=== PATIENT | male | born 1995 | race Caucasian/White ===

== ENCOUNTER 2019-03-07 17:21 | Inpatient (IN) | payer MEDICAID, OTHER ==
[~2019-03-07] VITALS: Ht 185.4 cm; Wt 105.8 kg
[~2019-03-07 17:21] MED LIST: AMLO-511 PO; CLON0.1T PO; DIVA-78 PO; FLUO-191 PO; RISP4 PO; TOPI25 PO
[2019-03-07] MEDS ORDERED: LORA1TAB3 PO (20:18)
[2019-03-07] MEDS ORDERED: TRAZ-220 PO (20:18)
[2019-03-07] MEDS ORDERED: QUET200T PO (20:18)
[2019-03-07] MEDS ORDERED: HALO5TAB2 PO (20:18)
[2019-03-07 20:29] LABS: BASOPHILS % (AUTO) 0.6 % (0.0-2.0); EOSINOPHILS % (AUTO) 0.6 % (1.0-6.0); HEMATOCRIT 46.6 % (41-53); HEMOGLOBIN 16.3 g/dL (13.5-17.5); LYMPHOCYTES # (AUTO) 2.4 K/uL (1.0-4.8); LYMPHOCYTES % (AUTO) 23.6 % (22.0-44.0); MEAN CORPUSCULAR VOLUME 92 fL (80-100); MONOCYTES # (AUTO) 1.1 K/uL (0.1-1.0); MONOCYTES % (AUTO) 10.4 % (2.0-9.0); NEUTROPHILS # (AUTO) 6.6 K/uL (1.8-7.7); NEUTROPHILS % (AUTO) 64.8 % (40.0-70.0); PLATELET COUNT (AUTO) 224 K/uL (150-450); RED BLOOD CELL COUNT(AUTO) 5.09 MIL/uL (4.50-5.90); RED CELL DISTRIBUTION WIDTH 12.6 % (11.5-14.5)
[2019-03-07 20:42] LABS: ANION GAP 8 mmol/L (8-16); CALCIUM, TOTAL 9.2 mg/dL (8.8-10.5); CARBON DIOXIDE 31 mmol/L (22-29); CHLORIDE 101 mmol/L (98-107); CREATININE 0.99 mg/dL (0.60-1.30); GLOMERULAR FILTR. RATE CALC > 60 mL/min (>60); GLUCOSE,RANDOM 104 mg/dL (70-110); SODIUM SERUM 140 mmol/L (136-145); UREA NITROGEN, BLOOD 18 mg/dL (7-18)
[2019-03-07 20:48] LABS: ALANINE AMINOTRANSFERASE 36 U/L (12-78); ALKALINE PHOSPHATASE 63 U/L (46-116); ASPARTATE AMINOTRANSFERASE 36 U/L (15-37); BILIRUBIN,TOTAL 0.5 mg/dL (0.1-1.0); TOTAL PROTEIN, SERUM 7.8 g/dL (6.4-8.2)
[2019-03-07 21:24] LABS: AMPHET/METH SCREEN,URINE NEGATIVE (NEGATIVE); BARBITURATE SCREEN, URINE NEGATIVE (NEGATIVE); BENZODIAZEPINES SCREEN,URINE NEGATIVE (NEGATIVE); CANNABINOID SCREEN,URINE NEGATIVE (NEGATIVE); COCAINE SCREEN,URINE NEGATIVE (NEGATIVE); METHADONE SCREEN, URINE NEGATIVE (NEGATIVE); OPIATE SCREEN,URINE NEGATIVE (NEGATIVE)
[2019-03-07 21:25] LABS: PHENCYCLIDINE SCREEN,URINE NEGATIVE (NEGATIVE)
[2019-03-07 21:30] LABS: APPEARANCE,URINE CLEAR (CLEAR); BILIRUBIN,URINE NEGATIVE (NEGATIVE); GLUCOSE, URINE (UA) NEGATIVE (NEGATIVE); KETONES,URINE NEGATIVE (NEGATIVE); LEUKOCYTE ESTERASE ,URINE NEGATIVE (NEGATIVE); NITRATE,URINE NEGATIVE (NEGATIVE); OCCULT BLOOD,URINE NEGATIVE (NEGATIVE); PROTEIN,URINE NEGATIVE (NEGATIVE)
[2019-03-08] MEDS ORDERED: ZOLPIDEM TARTRATE 10 MG TABLET PO PRN (01:45)
[2019-03-08 05:56] VITALS: BP 138/78
[2019-03-08] MEDS ORDERED: ONDANSETRON HCL 4 MG TABLET PO PRN (07:00)
[2019-03-08] MEDS ORDERED: CloNIDine HCL 0.1 MG TABLET PO PRN (07:00)
[2019-03-08] MEDS ORDERED: DOCUSATE SODIUM 100 MG CAPSULE PO PRN (07:00)
[2019-03-08] MEDS ORDERED: GuaiFENesin/D-METHORPHAN [SUGAR-FREE] 200-20MG/10 ML SYRUP UDCUP PO PRN (07:00)
[2019-03-08] MEDS ORDERED: ACETAMINOPHEN 325 MG TABLET PO PRN (07:00)
[2019-03-08] MEDS ORDERED: PETROLATUM,WHITE 28 GM JELLY TP PRN (07:00)
[2019-03-08] MEDS ORDERED: MAGNESIUM HYDROXIDE SUSPENSION 30 ML UDCUP PO PRN (07:00)
[2019-03-08] MEDS ORDERED: MAG HYDROX/AL HYDROX/SIMETH ES 30 ML SUSPENSION UDCUP PO PRN (07:00)
[2019-03-08] MEDS ORDERED: LOPERAMIDE HCL 2 MG CAPSULE PO PRN (07:00)
[2019-03-08 08:37] VITALS: BP 134/85
[2019-03-08 09:59] VITALS: BP 136/85
[2019-03-08] MEDS: IBUPROFEN 400 MG TABLET PO PRN (09:59)
[2019-03-08] MEDS: LORazepam 2 MG TABLET PO PRN (16:17)
[2019-03-08] MEDS: HALOPERIDOL 5 MG TABLET PO PRN (16:17)
[2019-03-08 17:15] VITALS: BP 123/85
[2019-03-09 06:25] VITALS: BP 126/81
[2019-03-09 08:26] LABS: CHOL/HDL RATIO 5.3 (4.2-7.3)
[2019-03-09 08:37] VITALS: BP 133/87
[2019-03-09] MEDS: BENZTROPINE MESYLATE 1 MG TABLET PO SCH (08:39)
[2019-03-09] MEDS: DIVALPROEX SODIUM 500 MG DR TABLET PO SCH ×2 (08:39→16:39)
[2019-03-09] MEDS: RisperiDONE 4 MG TABLET PO SCH ×2 (08:39→16:39)
[2019-03-09 16:22] VITALS: BP 137/85
[2019-03-09] MEDS: LORazepam 2 MG TABLET PO PRN ×2 (16:39→20:39)
[2019-03-09] MEDS: HALOPERIDOL 5 MG TABLET PO PRN (16:39)
[2019-03-09] MEDS: IBUPROFEN 400 MG TABLET PO PRN (20:38)
[2019-03-10 06:14] VITALS: BP 129/83
[2019-03-10] MEDS: DIVALPROEX SODIUM 500 MG DR TABLET PO SCH (08:27)
[2019-03-10] MEDS: BENZTROPINE MESYLATE 1 MG TABLET PO SCH (08:27)
[2019-03-10] MEDS: RisperiDONE 4 MG TABLET PO SCH (08:27)
[2019-03-10] MEDS ORDERED: BENZ1TAB10 PO (08:44)
[2019-03-10 08:47] VITALS: BP 138/85
== END 2019-03-10 12:55 | disposition home or self-care (01) | DRG 750 ==
LOC: EMS 17:21 → B3A 03-08 03:22
PROVIDERS: ADMIT Psychiatry & Neurology Child & Adolescent Psychiatry; ATTEND Psychiatry & Neurology Psychiatry
DX: F25.9 Schizoaffective disorder, unspecified (principal); R45.850 Homicidal ideations; F84.0 Autistic disorder; F90.9 Attention-deficit hyperactivity disorder, unspecified type; I10 Essential (primary) hypertension; K59.00 Constipation, unspecified
CPT/HCPCS: G0480

== ENCOUNTER 2020-12-31 05:51 | Emergency (ER) | payer MEDICAID, OTHER ==
[~2020-12-31] VITALS: Ht 182.9 cm; Wt 116.8 kg
[~2020-12-31 05:51] MED LIST changes: -AMLO-511 PO; +BENZ1TAB10 PO; -CLON0.1T PO; +DIVA-112 PO; -DIVA-78 PO; -FLUO-191 PO; -RISP4 PO; +RISP4TAB73 PO; -TOPI25 PO
[2020-12-31] MEDS ORDERED: FLUO-191 PO (06:03)
[2020-12-31] MEDS ORDERED: TRAZ-257 PO (06:03)
[2020-12-31] MEDS ORDERED: DIVA-112 PO (06:03)
[2020-12-31] MEDS ORDERED: DOCU-275 PO (06:03)
[2020-12-31] MEDS ORDERED: HALO10 PO (06:03)
[2020-12-31] MEDS ORDERED: QUET200T PO (06:03)
[2020-12-31] MEDS ORDERED: FLUT200B IH (06:03)
[2020-12-31] MEDS ORDERED: AMLO-257 PO (06:03)
[2020-12-31] MEDS ORDERED: IBUPROFEN 600 MG TABLET PO ONE (06:30)
[2020-12-31] MEDS ORDERED: ACETAMINOPHEN 500 MG TABLET PO ONE (06:45)
[2020-12-31 06:56] LABS: COVID AG,FIA SOURCE NASAL SWAB
[2020-12-31 07:15] VITALS: BP 147/89
== END 2020-12-31 07:28 | disposition home or self-care (01) ==
LOC: EMS 05:52
DX: S83.92XA Sprain of unspecified site of left knee, initial encounter (principal); Z20.822 Contact with and (suspected) exposure to COVID-19; X58.XXXA Exposure to other specified factors, initial encounter; Y93.89 Activity, other specified; Y92.89 Other specified places as the place of occurrence of the external cause; Y99.8 Other external cause status
CPT/HCPCS: 29505; 29530; 87426; 99284; 73562-TC; Z7502; Z7610

== ENCOUNTER 2021-06-09 11:17 | Emergency (ER) | payer OTHER ==
[~2021-06-09] VITALS: Ht 185.4 cm; Wt 81.8 kg
[~2021-06-09 11:17] MED LIST changes: +AMLO-257 PO; +DOCU-270 PO; +FLUO-191 PO; +FLUT200B IH; +HALO10 PO; +QUET200T PO; +TRAZ-257 PO
[2021-06-09 11:23] VITALS: BP 148/74
[2021-06-09 14:08] LABS: COVID AG,FIA SOURCE NASOPHARYNGEAL
[2021-06-09 14:13] LABS: BASOPHILS % (AUTO) 0.7 % (0.0-2.0); EOSINOPHILS % (AUTO) 0 % (1.0-6.0); HEMATOCRIT 43.8 % (41-53); HEMOGLOBIN 15.1 g/dL (13.5-17.5); LYMPHOCYTES # (AUTO) 1.1 K/uL (1.0-4.8); LYMPHOCYTES % (AUTO) 9.4 % (22.0-44.0); MEAN CORPUSCULAR HGB CONC 34.6 G/dL (31.0-37.0); MEAN CORPUSCULAR VOLUME 90 fL (80-100); MONOCYTES # (AUTO) 1.5 K/uL (0.1-1.0); MONOCYTES % (AUTO) 12.2 % (2.0-9.0); NEUTROPHILS # (AUTO) 9.3 K/uL (1.8-7.7); NEUTROPHILS % (AUTO) 77.7 % (40.0-70.0); PLATELET COUNT (AUTO) 155 K/uL (150-450); RED BLOOD CELL COUNT(AUTO) 4.88 MIL/uL (4.50-5.90); RED CELL DISTRIBUTION WIDTH 13.3 % (11.5-14.5)
[2021-06-09 14:27] LABS: ANION GAP 13 mmol/L (8-16); CALCIUM, TOTAL 8.3 mg/dL (8.8-10.5); CARBON DIOXIDE 25 mmol/L (22-29); CHLORIDE 97 mmol/L (98-107); CREATININE 1.17 mg/dL (0.60-1.30); GLOMERULAR FILTR. RATE CALC > 60 mL/min (>60); GLUCOSE,RANDOM 140 mg/dL (70-110); POTASSIUM 3.5 mmol/L (3.5-5.1); SODIUM SERUM 135 mmol/L (136-145); UREA NITROGEN, BLOOD 17 mg/dL (7-18)
[2021-06-09 14:30] LABS: ALANINE AMINOTRANSFERASE 35 U/L (12-78); ALBUMIN 3.5 g/dL (3.4-5.0); ALKALINE PHOSPHATASE 51 U/L (46-116); ASPARTATE AMINOTRANSFERASE 50 U/L (15-37); BILIRUBIN,TOTAL 0.8 mg/dL (0.1-1.0); TOTAL PROTEIN, SERUM 7.4 g/dL (6.4-8.2)
== END 2021-06-09 15:37 | disposition home or self-care (01) ==
LOC: EMS 11:20
DX: R19.7 Diarrhea, unspecified (principal); R50.9 Fever, unspecified; I10 Essential (primary) hypertension; F32.9 Major depressive disorder, single episode, unspecified; F20.9 Schizophrenia, unspecified; Z88.0 Allergy status to penicillin; Z79.899 Other long term (current) drug therapy; Z20.822 Contact with and (suspected) exposure to COVID-19
CPT/HCPCS: 80053; 83690; 85025; 99283

== ENCOUNTER 2022-03-29 09:07 | Emergency (ER) | payer OTHER ==
[~2022-03-29] VITALS: Ht 177.8 cm; Wt 95.5 kg
[~2022-03-29 09:07] MED LIST changes: -BENZ1TAB10 PO; +BENZ1TAB96 PO; -DOCU-270 PO; +DOCU-385 PO; +FLUO-177 PO; -FLUO-191 PO; -HALO10 PO; +HALO10TA21 PO
[2022-03-29] MEDS ORDERED: CLOT15CR29 TP (09:20)
[2022-03-29] MEDS ORDERED: NAPR-1193 PO (09:20)
[2022-03-29] MEDS ORDERED: LORA-1000 PO (09:20)
[2022-03-29 11:51] VITALS: BP 143/98
== END 2022-03-29 14:27 | disposition home or self-care (01) ==
LOC: EMS 09:10
DX: M25.572 Pain in left ankle and joints of left foot (principal); F32.A Depression, unspecified; I10 Essential (primary) hypertension; F20.9 Schizophrenia, unspecified; F84.0 Autistic disorder; F90.9 Attention-deficit hyperactivity disorder, unspecified type; Z88.0 Allergy status to penicillin
CPT/HCPCS: 99283

== ENCOUNTER 2022-08-19 07:28 | Emergency (ER) | payer OTHER ==
[~2022-08-19] VITALS: Ht 185.4 cm; Wt 111.8 kg
[~2022-08-19 07:28] MED LIST changes: +CLOT15CR29 TP; +LORA-1000 PO; +NAPR-1193 PO
[2022-08-19] MEDS ORDERED: TRAZ150T80 PO (07:36)
[2022-08-19] MEDS ORDERED: MELA3CAP2 PO (07:36)
[2022-08-19] MEDS ORDERED: ACETAMINOPHEN 500 MG TABLET PO ONE (08:00)
[2022-08-19] MEDS ORDERED: IBUPROFEN 600 MG TABLET PO ONE (08:00)
[2022-08-19 08:58] VITALS: BP 133/80
== END 2022-08-19 10:33 | disposition home or self-care (01) ==
LOC: EMS 07:28
DX: S83.92XA Sprain of unspecified site of left knee, initial encounter (principal); F32.A Depression, unspecified; I10 Essential (primary) hypertension; F20.9 Schizophrenia, unspecified; F90.9 Attention-deficit hyperactivity disorder, unspecified type; Z88.0 Allergy status to penicillin; X58.XXXA Exposure to other specified factors, initial encounter; Y93.89 Activity, other specified; Y92.89 Other specified places as the place of occurrence of the external cause; Y99.8 Other external cause status
CPT/HCPCS: 99283

== ENCOUNTER 2023-03-28 14:14 | Inpatient (IN) | payer MEDICAID, OTHER ==
[~2023-03-28] VITALS: Ht 185.4 cm; Wt 111.8 kg
[~2023-03-28 14:14] MED LIST changes: -BENZ1TAB96 PO; +MELA3CAP2 PO; -TRAZ-257 PO; +TRAZ150T80 PO
[2023-03-28] MEDS ORDERED: DIVA-112 PO (15:28)
[2023-03-28] MEDS ORDERED: CLON0.1T2 PO (15:28)
[2023-03-28 16:05] LABS: COVID AG,FIA SOURCE NASAL SWAB
[2023-03-28 16:19] LABS: BASOPHILS % (AUTO) 0.7 % (0.0-2.0); EOSINOPHILS % (AUTO) 0.8 % (1.0-6.0); HEMATOCRIT 44.6 % (41-53); HEMOGLOBIN 15.5 g/dL (13.5-17.5); LYMPHOCYTES # (AUTO) 2.7 K/uL (1.0-4.8); LYMPHOCYTES % (AUTO) 26.6 % (22.0-44.0); MEAN CORPUSCULAR HEMOGLOBIN 29.7 pg (26.0-34.0); MEAN CORPUSCULAR HGB CONC 34.8 G/dL (31.0-37.0); MEAN CORPUSCULAR VOLUME 85 fL (80-100); MONOCYTES # (AUTO) 1.1 K/uL (0.1-1.0); MONOCYTES % (AUTO) 10.9 % (2.0-9.0); NEUTROPHILS # (AUTO) 6.3 K/uL (1.8-7.7); PLATELET COUNT (AUTO) 231 K/uL (150-450); RED BLOOD CELL COUNT(AUTO) 5.22 MIL/uL (4.50-5.90)
[2023-03-28 16:26] LABS: ANION GAP 9 mmol/L (8-16); CALCIUM, TOTAL 9.3 mg/dL (8.8-10.5); CARBON DIOXIDE 27 mmol/L (22-29); CHLORIDE 101 mmol/L (98-107); CREATININE 1.01 mg/dL (0.60-1.30); GLOMERULAR FILTR. RATE CALC > 60 mL/min (>60); GLUCOSE,RANDOM 114 mg/dL (70-110); SODIUM SERUM 137 mmol/L (136-145)
[2023-03-28] MEDS ORDERED: LORazepam 1 MG TABLET PO ONE (16:30)
[2023-03-28 16:33] LABS: ALANINE AMINOTRANSFERASE 63 U/L (12-78); ALBUMIN 3.9 g/dL (3.4-5.0); ALKALINE PHOSPHATASE 71 U/L (46-116); ASPARTATE AMINOTRANSFERASE 45 U/L (15-37); BILIRUBIN,TOTAL 0.4 mg/dL (0.1-1.0); TOTAL PROTEIN, SERUM 7.7 g/dL (6.4-8.2)
[2023-03-28] MEDS ORDERED: LORazepam 2 MG TABLET PO PRN (19:00)
[2023-03-28] MEDS ORDERED: HALOPERIDOL 5 MG TABLET PO PRN (19:00)
[2023-03-28 21:40] VITALS: BP 143/105; PULSE 106; RESP 20; TEMP 98.6; O2SAT 95
[2023-03-28] MEDS: ZOLPIDEM TARTRATE 10 MG TABLET PO PRN (22:16)
[2023-03-29] MEDS ORDERED: PNEUMOCOCCAL VACCINE POLYVALENT 0.5 ML VIAL [PPSV23] IM. ONE (02:00)
[2023-03-29] MEDS ORDERED: CloNIDine HCL 0.1 MG TABLET PO PRN (05:30)
[2023-03-29] MEDS ORDERED: OMEPRAZOLE 20 MG CAPSULE PO PRN (05:30)
[2023-03-29] MEDS ORDERED: LOPERAMIDE HCL 2 MG CAPSULE PO PRN (05:30)
[2023-03-29] MEDS ORDERED: ONDANSETRON HCL 4 MG TABLET PO PRN (05:30)
[2023-03-29] MEDS ORDERED: ALBUTEROL SULFATE HFA 90 MCG/PUFF 8 GM INHALER IH PRN (05:30)
[2023-03-29] MEDS ORDERED: MAG HYDROX/AL HYDROX/SIMETH ES 30 ML SUSPENSION UDCUP PO PRN (05:30)
[2023-03-29] MEDS ORDERED: BENZOCAINE/MENTHOL LOZENGE PO PRN (05:30)
[2023-03-29] MEDS ORDERED: IBUPROFEN 600 MG TABLET PO PRN (05:30)
[2023-03-29] MEDS ORDERED: BACITRACIN 28 GM OINTMENT TP PRN (05:30)
[2023-03-29] MEDS ORDERED: PETROLATUM,WHITE 28 GM JELLY TP PRN (05:30)
[2023-03-29] MEDS ORDERED: MAGNESIUM HYDROXIDE SUSPENSION 30 ML UDCUP PO PRN (05:30)
[2023-03-29] MEDS ORDERED: DOCUSATE SODIUM 100 MG CAPSULE PO PRN (05:30)
[2023-03-29 08:24] VITALS: BP 17/98; PULSE 72; RESP 17; TEMP 98.4; O2SAT 98
[2023-03-29] MEDS: AmLODIPine BESYLATE 5 MG TABLET PO SCH (09:00)
[2023-03-29 20:11] VITALS: BP 130/88; PULSE 97; RESP 20; TEMP 98.3; O2SAT 95
[2023-03-29] MEDS: ZOLPIDEM TARTRATE 10 MG TABLET PO PRN (22:00)
[2023-03-30 08:22] VITALS: BP 133/79; PULSE 97; RESP 17; TEMP 98.3; O2SAT 94
[2023-03-30] MEDS: DIVALPROEX SODIUM 500 MG DR TABLET PO SCH ×2 (09:05→17:15)
[2023-03-30] MEDS: AmLODIPine BESYLATE 5 MG TABLET PO SCH (09:05)
[2023-03-30] MEDS: RisperiDONE 4 MG TABLET PO SCH ×2 (09:05→17:15)
[2023-03-30 20:26] VITALS: BP 126/99; PULSE 100; RESP 19; TEMP 97.3; O2SAT 95
[2023-03-30] MEDS: ACETAMINOPHEN 325 MG TABLET PO PRN (20:43)
[2023-03-31 08:26] VITALS: BP 143/85; PULSE 100; RESP 18; TEMP 97.5; O2SAT 98
[2023-03-31] MEDS: DIVALPROEX SODIUM 500 MG DR TABLET PO SCH ×2 (08:30→16:31)
[2023-03-31] MEDS: RisperiDONE 4 MG TABLET PO SCH ×2 (08:30→16:31)
[2023-03-31] MEDS: AmLODIPine BESYLATE 5 MG TABLET PO SCH (08:30)
[2023-03-31] MEDS: ACETAMINOPHEN 325 MG TABLET PO PRN (18:18)
[2023-03-31 18:19] VITALS: RESP 18
[2023-03-31 19:18] VITALS: RESP 18
[2023-03-31 20:16] VITALS: BP 130/86; PULSE 100; RESP 18; TEMP 97.6; O2SAT 96
[2023-03-31 22:22] VITALS: BP 146/89; PULSE 100; RESP 18; O2SAT 98
[2023-04-01 08:20] VITALS: BP 133/79; PULSE 99; RESP 19; TEMP 98.9
[2023-04-01] MEDS: AmLODIPine BESYLATE 5 MG TABLET PO SCH (08:37)
[2023-04-01] MEDS: RisperiDONE 4 MG TABLET PO SCH (08:37)
[2023-04-01] MEDS: DIVALPROEX SODIUM 500 MG DR TABLET PO SCH (08:37)
== END 2023-04-01 13:47 | disposition home or self-care (01) | DRG 750 ==
LOC: EMS 14:19 → B2S 19:00
PROVIDERS: ADMIT Psychiatry & Neurology Psychiatry; ATTEND Psychiatry & Neurology Psychiatry
DX: F25.9 Schizoaffective disorder, unspecified (principal); R45.851 Suicidal ideations; F41.9 Anxiety disorder, unspecified; F84.0 Autistic disorder; I10 Essential (primary) hypertension; F32.A Depression, unspecified; F90.9 Attention-deficit hyperactivity disorder, unspecified type; K59.00 Constipation, unspecified; F17.210 Nicotine dependence, cigarettes, uncomplicated; F19.10 Other psychoactive substance abuse, uncomplicated; G47.00 Insomnia, unspecified; K21.9 Gastro-esophageal reflux disease without esophagitis; Z79.899 Other long term (current) drug therapy; Z88.0 Allergy status to penicillin
CPT/HCPCS: 80053; 85025; G0480

== ENCOUNTER 2024-03-22 14:27 | Inpatient (IN) | payer MEDICAID, OTHER ==
[~2024-03-22] VITALS: Ht 188 cm; Wt 120.0 kg
[~2024-03-22 14:27] MED LIST changes: -CLOT15CR29 TP; -DOCU-385 PO; -FLUO-177 PO; -FLUT200B IH; -HALO10TA21 PO; -LORA-1000 PO; -MELA3CAP2 PO; -NAPR-1193 PO; -QUET200T PO; -RISP4TAB73 PO; +RISP4TAB94 PO; -TRAZ150T80 PO
[2024-03-22 15:17] LABS: BASOPHILS % (AUTO) 0.9 % (0.0-2.0); EOSINOPHILS % (AUTO) 1.9 % (1.0-6.0); HEMATOCRIT 44.2 % (41-53); HEMOGLOBIN 15.3 g/dL (13.5-17.5); LYMPHOCYTES # (AUTO) 3.3 K/uL (1.0-4.8); LYMPHOCYTES % (AUTO) 21.8 % (22.0-44.0); MEAN CORPUSCULAR HEMOGLOBIN 28.3 pg (26.0-34.0); MEAN CORPUSCULAR HGB CONC 34.6 G/dL (31.0-37.0); MEAN CORPUSCULAR VOLUME 82 fL (80-100); MONOCYTES # (AUTO) 1.6 K/uL (0.1-1.0); MONOCYTES % (AUTO) 10.4 % (2.0-9.0); NEUTROPHILS # (AUTO) 9.7 K/uL (1.8-7.7); PLATELET COUNT (AUTO) 425 K/uL (150-450); RED BLOOD CELL COUNT(AUTO) 5.41 MIL/uL (4.50-5.90); RED CELL DISTRIBUTION WIDTH 13.3 % (11.5-14.5); WHITE BLOOD COUNT (AUTO) 14.9 K/uL (4.5-11.0)
[2024-03-22 15:29] LABS: ANION GAP 7 mmol/L (8-16); CALCIUM, TOTAL 9.4 mg/dL (8.8-10.5); CARBON DIOXIDE 30 mmol/L (22-29); CHLORIDE 99 mmol/L (98-107); GLOMERULAR FILTR. RATE CALC > 60 mL/min (>60); GLUCOSE,RANDOM 133 mg/dL (70-110); POTASSIUM 4.4 mmol/L (3.5-5.1); SODIUM SERUM 136 mmol/L (136-145); UREA NITROGEN, BLOOD 16 mg/dL (7-18)
[2024-03-22 15:56] LABS: ALCOHOL, BLOOD (SERUM) < 3 mg/dL (0-10)
[2024-03-22 16:49] LABS: COVID AG,FIA SOURCE NASAL SWAB
[2024-03-22 17:01] LABS: ALCOHOL, URINE DRUG SCREEN NEGATIVE (NEGATIVE); AMPHET/METH SCREEN,URINE NEGATIVE (NEGATIVE); BARBITURATE SCREEN, URINE NEGATIVE (NEGATIVE); BENZODIAZEPINES SCREEN,URINE NEGATIVE (NEGATIVE); CANNABINOID SCREEN,URINE NEGATIVE (NEGATIVE); COCAINE SCREEN,URINE NEGATIVE (NEGATIVE); METHADONE SCREEN, URINE NEGATIVE (NEGATIVE); OPIATE SCREEN,URINE NEGATIVE (NEGATIVE); PHENCYCLIDINE SCREEN,URINE NEGATIVE (NEGATIVE)
[2024-03-22 17:12] LABS: SARS-COV2 (COVID) ANTIGEN,FIA Negative (Negative)
[2024-03-22] MEDS: DiphenhydrAMINE HCL 25 MG CAPSULE PO ONE (17:25)
[2024-03-22] MEDS: HALOPERIDOL 5 MG TABLET PO ONE (17:25)
[2024-03-22] MEDS: LORazepam 2 MG TABLET PO ONE (17:25)
[2024-03-22] MEDS ORDERED: ZOLPIDEM TARTRATE 10 MG TABLET PO PRN (20:45)
[2024-03-22 23:32] VITALS: BP 127/85; PULSE 84; RESP 18; TEMP 98; O2SAT 100
[2024-03-23 08:25] VITALS: BP 158/104; PULSE 129; RESP 18; TEMP 95; O2SAT 92
[2024-03-23] MEDS: LORazepam 2 MG TABLET PO PRN (08:32)
[2024-03-23 09:30] VITALS: BP 143/92; PULSE 100; RESP 16; O2SAT 96
[2024-03-23] MEDS ORDERED: LOPERAMIDE HCL 2 MG CAPSULE PO PRN (10:15)
[2024-03-23] MEDS ORDERED: DOCUSATE SODIUM 100 MG CAPSULE PO PRN (10:15)
[2024-03-23] MEDS ORDERED: MAG HYDROX/ALUMINUM HYD/SIMETH ES 30 ML SUSPENSION UDCUP PO PRN (10:15)
[2024-03-23] MEDS ORDERED: PETROLATUM,WHITE 28 GM JELLY TP PRN (10:15)
[2024-03-23] MEDS ORDERED: ALBUTEROL SULFATE HFA 90 MCG/PUFF 8 GM INHALER IH PRN (10:15)
[2024-03-23] MEDS ORDERED: IBUPROFEN 400 MG TABLET PO PRN (10:15)
[2024-03-23] MEDS ORDERED: ONDANSETRON HCL 4 MG TABLET PO PRN (10:15)
[2024-03-23] MEDS ORDERED: GuaiFENesin/D-METHORPHAN [SUGAR-FREE] 200-20MG/10 ML SYRUP UDCUP PO PRN (10:15)
[2024-03-23] MEDS ORDERED: MAGNESIUM HYDROXIDE SUSPENSION 30 ML UDCUP PO PRN (10:15)
[2024-03-23] MEDS ORDERED: CloNIDine HCL 0.1 MG TABLET PO PRN (10:15)
[2024-03-23] MEDS ORDERED: NICOTINE 14 MG/24 HOUR PATCH TD PRN (10:15)
[2024-03-23] MEDS: DIVALPROEX SODIUM 500 MG DR TABLET PO SCH (12:35)
[2024-03-23] MEDS: RisperiDONE 4 MG TABLET PO SCH (12:36)
[2024-03-23 21:40] VITALS: BP 152/91; PULSE 106; RESP 18; TEMP 97.5; O2SAT 96
[2024-03-24 08:05] VITALS: BP 149/87; PULSE 100; RESP 16; TEMP 97.4; O2SAT 97
[2024-03-24 08:07] LABS: BASOPHILS % (AUTO) 0.5 % (0.0-2.0); EOSINOPHILS % (AUTO) 1.5 % (1.0-6.0); HEMATOCRIT 44.9 % (41-53); HEMOGLOBIN 15.2 g/dL (13.5-17.5); LYMPHOCYTES % (AUTO) 26.2 % (22.0-44.0); MEAN CORPUSCULAR HEMOGLOBIN 28.1 pg (26.0-34.0); MEAN CORPUSCULAR HGB CONC 33.8 G/dL (31.0-37.0); MEAN CORPUSCULAR VOLUME 83 fL (80-100); MONOCYTES # (AUTO) 0.8 K/uL (0.1-1.0); MONOCYTES % (AUTO) 7.4 % (2.0-9.0); NEUTROPHILS # (AUTO) 7.3 K/uL (1.8-7.7); NEUTROPHILS % (AUTO) 64.4 % (40.0-70.0); PLATELET COUNT (AUTO) 393 K/uL (150-450); RED CELL DISTRIBUTION WIDTH 13.1 % (11.5-14.5); WHITE BLOOD COUNT (AUTO) 11.4 K/uL (4.5-11.0)
[2024-03-24] MEDS: AmLODIPine BESYLATE 5 MG TABLET PO SCH (08:08)
[2024-03-24 08:17] LABS: HEMOGLOBIN A1C 6.6 % (3.8-5.6)
[2024-03-24 08:39] LABS: CHOL/HDL RATIO 6.8 (4.2-7.3); THYROID STIMULATING HORMONE 1.98 uIU/mL (0.36-3.74)
[2024-03-24 11:22] VITALS: RESP 17
[2024-03-24] MEDS: ACETAMINOPHEN 325 MG TABLET PO PRN (11:22)
[2024-03-24 12:22] VITALS: RESP 16
[2024-03-24 20:40] VITALS: BP 132/65; PULSE 110; RESP 16; TEMP 97.2; O2SAT 98
[2024-03-25 08:20] VITALS: BP 142/67; PULSE 120; RESP 17; TEMP 97.2; O2SAT 96
[2024-03-25 08:32] VITALS: RESP 17
[2024-03-25 09:32] VITALS: RESP 18
[2024-03-25] MEDS: HALOPERIDOL 5 MG TABLET PO PRN (13:01)
[2024-03-25 16:34] VITALS: BP 133/70; PULSE 65; RESP 18; TEMP 96.9; O2SAT 96
[2024-03-25 20:34] VITALS: BP 133/91; PULSE 117; RESP 19; TEMP 96.9; O2SAT 95
[2024-03-26 08:38] VITALS: BP 147/91; PULSE 127; RESP 18; TEMP 96.6; O2SAT 95
[2024-03-26] MEDS ORDERED: LORazepam 2 MG/ML VIAL ONE (11:07)
[2024-03-26] MEDS: HALOPERIDOL LACTATE 5 MG/ML VIAL IM ONE (12:34)
[2024-03-26] MEDS: LORazepam 2 MG/ML VIAL IM ONE (12:34)
[2024-03-26] MEDS: DiphenhydrAMINE HCL 50 MG/ML VIAL IM ONE (12:35)
[2024-03-26 20:32] VITALS: BP 151/95; PULSE 119; RESP 18; TEMP 98.2; O2SAT 95
[2024-03-27 09:11] VITALS: BP 145/99; PULSE 129; RESP 18; TEMP 97.7; O2SAT 96
[2024-03-27] MEDS ORDERED: RISP4TAB94 PO (12:05)
[2024-03-27] MEDS ORDERED: DIVA-112 PO (12:05)
[2024-03-27] MEDS ORDERED: AMLO-257 PO (12:05)
== END 2024-03-27 16:10 | disposition home or self-care (01) | DRG 750 ==
LOC: EMS 14:31 → B2S 20:44 → EMS 22:18
PROVIDERS: ADMIT Psychiatry & Neurology Psychiatry; ATTEND Psychiatry & Neurology Psychiatry
PROC: GZHZZZZ Group Psychotherapy (ICD-10-PCS; principal; 2024-03-23)
PROC: GZ51ZZZ Individual Psychotherapy, Behavioral (ICD-10-PCS; 2024-03-23)
PROC: GZ58ZZZ Individual Psychotherapy, Cognitive-Behavioral (ICD-10-PCS; 2024-03-23)
DX: F25.1 Schizoaffective disorder, depressive type (principal); R45.851 Suicidal ideations; F79 Unspecified intellectual disabilities; D72.829 Elevated white blood cell count, unspecified; E66.9 Obesity, unspecified; F84.0 Autistic disorder; G47.00 Insomnia, unspecified; Z20.822 Contact with and (suspected) exposure to COVID-19; I10 Essential (primary) hypertension; F90.9 Attention-deficit hyperactivity disorder, unspecified type; R00.0 Tachycardia, unspecified; R73.9 Hyperglycemia, unspecified; W22.8XXA Striking against or struck by other objects, initial encounter; Z79.899 Other long term (current) drug therapy; Z88.0 Allergy status to penicillin; Z91.51 Personal history of suicidal behavior; Y92.89 Other specified places as the place of occurrence of the external cause; Y93.89 Activity, other specified; Y99.8 Other external cause status; Z68.34 Body mass index [BMI] 34.0-34.9, adult
CPT/HCPCS: 80048; 80061; 80307; 83036; 84443; 85025; G0480; J1200; J1630; J2060